=== PATIENT | male | born 1945 | race Caucasian/White ===

== ENCOUNTER 2019-06-07 11:07 | Inpatient (IN) ==
[2019-06-07] MEDS ORDERED: ZOFRAN IV ONE (11:47)
[2019-06-07] MEDS ORDERED: NS 1,000 ML IV ONE (13:16)
[2019-06-07 13:33] LABS: BASO# 0.01 X1000 (0.0-0.2); BASO% 0.2 % (0.0-0.8); EOS# 0.04 X1000 (0.0-0.7); EOS% 0.8 % (0.0-10.0); HEMATOCRIT 46.6 % (42.0-52.0); HEMOGLOBIN 15.1 g/dL (14.0-18.0); LYMPH# 1.27 X1000 (1.2-3.4); MCH 28.8 PG (27-31); MCHC 32.4 g/dL (33-37); MCV 88.9 FL (81-99); MONO# 0.45 X1000 (0.11-0.59); MONO% 9.2 % (1.7-9.3); MPV 12.1 FL (7.4-10.4); NEUT# 3.11 X1000 (1.4-6.5); NEUT% 63.8 % (42.2-75.2); PLT 111 X1000 (130-400); RBC 5.24 XMIL (4.7-6.1); RDW 13.9 % (11.5-14.5); WBC 4.88 X1000 (4.8-10.8)
--- NOTE | 2019-06-07 13:52 | Diag Imaging Result Doc PS360 ---
FLAT/UPRIGHT ABD/1 VIEW CHEST - 06/07/2019 INDICATION: vomiting TECHNIQUE: COMPARISON: Chest x-ray 06/05/2019 FINDINGS: Lung volumes are lower. There is a focal infiltrate at the lateral left lung base. Heart size is borderline enlarged. There is a nonobstructive bowel gas pattern. There is rectal stool impaction with a rectal stool ball measuring 7.5 cm. IMPRESSION: 1. Left lung base infiltrate compatible with pneumonia. 2. Rectal stool impaction. Electronically signed by Sim Garcia 06/07/2019 1:50 PM
[2019-06-07] MEDS ORDERED: DUONEB (A & A) INH ONE (13:54)
[2019-06-07] MEDS ORDERED: PULMICORT INH ONE (13:55)
[2019-06-07] MEDS ORDERED: ROCEPHIN 1 GM in NS 50 ML IV ONE (13:55)
[2019-06-07] MEDS ORDERED: SOLU-MEDROL IV ONE (13:55)
[2019-06-07] MEDS ORDERED: DULCOLAX PR ONE (14:03)
[2019-06-07 14:08] LABS: AGAP 14; ALB/GLOB RATIO 1.4; ALBUMIN 4.3 g/dL (3.5-5.0); ALKALINE PHOSPHATASE 43 U/L (32-122); BUN 16 mg/dL (8-22); CALCIUM 9.2 mg/dL (8.8-10.2); CHLORIDE 102 mmol/L (98-107); COSMO 285; ESTIMATED GFR > 60; GLUCOSE 173 mg/dL (70-104); GOT 128 U/L (10-34); GPT 98 U/L (10-44); POTASSIUM 3.9 mmol/L (3.5-5.1); SODIUM 140 mmol/L (136-145); TCO2 24 mmol/L (25-35); TOTAL BILIRUBIN 0.47 mg/dL (0.20-1.00); TOTAL PROTEIN 7.4 g/dL (6.3-8.3)
[2019-06-07 14:49] LABS: ALLEN TEST YES; BE 0.5 mmoll (-3.0-3.0); BLOOD TYPE ARTERIAL; HCO3-(ACT) 25.2 mmoll (20.0-26.0); METHB 0.6 % (0.0-1.5); O2(CT) 18.8 mL/dL (15.0-23.0); O2HB 91.9 % (95.0-99.0); PCO2(98.6) 47 mmHg (35-45); PO2(98.6) 61 mmHg (60-100); SAMPLE BLOOD; SAO2 94.4 % (95.0-100.0); THB 14.6 g/dL (11.5-17.4); pH(98.6) 7.36 (7.35-7.45)
[2019-06-07 14:50] LABS: MODALITY CANNULA
--- NOTE | 2019-06-07 14:59 | PROVIDER DOCUMENTATION ---
This chart was entered by Char De La Paz Scribe, acting as scribe for Katie Mcguire MD. HPI-Abdominal Pain/GI Problem - General Stated Complaint: n/v and flu + Time Seen by Provider: 06/07/19 11:11 Source: patient, EMS ([facility]) Allergies/Adverse Reactions: Patient Allergies Allergy/AdvReac Type Severity Reaction Status Date / Time morphine AdvReac HIVES Verified 06/05/19 13:46 Home Medications: Home Medication List Medication Instructions Recorded Confirmed Last Taken Type Amlodipine [Norvasc] 1 dose PO DAILY 06/05/19 06/07/19 06/05/19 07:00 History LISINOpril [Prinivil] 1 dose PO DAILY 06/05/19 06/07/19 06/05/19 07:00 History Metformin [Glucophage] 1 dose PO DAILY 06/05/19 06/07/19 06/04/19 22:00 History Oseltamivir [Tamiflu] 75 mg PO BID #9 cap 06/05/19 06/07/19 Unknown Rx Hydrochlorothiazide 12.5 mg PO DAILY 06/07/19 06/07/19 Unknown History - History of Present Illness-ABD Nature of Presenting Problems: 74 yowm presents to the ed via ems ([facility]) with c/o n/v acute onset this morning. pt was dx was flu on 06/05/19 and is on Tamiflu. pt on exam has nausea and is diaphoretic. pt looks to not feel well on exam Abdominal Pain Onset Location: reports: other (denies pain just has nausea) Pain Radiation: reports: no radiation Quality of Pain: reports: none, other (nausea) Severity in ED: reports: moderate Onset/Duration: reports: this morning Timing: reports: still present, getting worse Activities at Onset: reports: light activity Exposure to sick contacts?: No Modifying Factors: improves with: nothing Associated Symptoms: reports: constipation, nausea, vomiting. denies: back/neck pain, chest pain, cough, dizziness, fever/chills, shortness of breath Last BM: last night Dark Stools Present?: reports: none noticed Rectal Bleeding: reports: none # of Diarrhea Episodes: 0 Rectal Pain: reports: none # of Vomiting Episodes: 4 Emesis Description: reports: other (yellow) Bruising or Bleeding Gums?: No Similar Symptoms Previously?: Yes Recently seen or treated by another doctor?: Yes (dx with flu 06/05/19 in ed) Review of Systems - Adult - REVIEW OF SYSTEMS - ADULT Constitutional: denies: chills, fever Eyes: reports: no symptoms reported Ears, Nose, Mouth & Throat: reports: no symptoms reported Cardiovascular: denies: chest pain, palpitations Respiratory: reports: see HPI, wheezing. denies: cough, shortness of breath Gastrointestinal: reports: see HPI, constipation, nausea, vomiting. denies: abdominal pain Genitourinary: reports: no symptoms reported Musculoskeletal: denies: back pain, neck pain Integumentary: reports: no symptoms reported Neurological: denies: dizziness/vertigo, headache/migraines Psychiatric: reports: no symptoms reported Endocrine: reports: no symptoms reported Hematologic/Lymphatic: reports: no symptoms reported Allergic/Immunologic: reports: no symptoms reported All Other Systems: Reviewed and Negative Past History - Adult - PAST MEDICAL HISTORY-ADULT Review of Records: reports: Old Records Reviewed, Nursing Assessment Review, Medications Reviewed, Social history reviewed & non-contributory. Major Childhood Illnesses: reports: denies history Cardiovascular: reports: HTN Respiratory: reports: denies history Gastrointestinal: reports: denies history Genitourinary: reports: denies history Musculoskeletal: reports: denies history Neurological: reports: denies history Psychiatric: reports: denies history Endocrine/Immune: reports: Diabetes Diabetes Type: Type 2 Other Conditions: reports: cataract/glaucoma - PRIOR SURGERIES/PROCEDURES Surgical/Procedure History: reports: reviewed, not pertinent - IMMUNIZATION STATUS Childhood Immunizations: See Nurse Assessment Flu Vaccine: See Nurse Assessment - FAMILY HISTORY Family History: reviewed, not pertinent - SOCIAL HISTORY Smoking: denies Substance Use: denies Living Situation: family Physical Exam-General - PHYSICAL EXAM-ADULT Initial Vital Signs Reviewed: Yes - CONSTITUTIONAL General Appearance: alert, mild distress, obese - EYES Eyes: PERRL/EOMI - HEAD, EARS, NOSE, MOUTH & THROAT HENMT: negative: moist mucous membranes (dry oral) - NECK Neck: non-tender, full range of motion, supple, normal inspection - RESPIRATORY Respiratory: chest non-tender, no pleuratic chest pain, no respiratory distress, no accessory muscle use, wheezing - CARDIOVASCULAR Cardiovascular: normal peripheral pulses, regular rate, rhythm - CHEST (BREASTS) Chest/Breast: deferred - GASTROINTESTINAL (ABDOMEN) Abdominal Exam: soft, other (c/o nausea) - GENITOURINARY Male Genitalia: deferred Rectal Exam: deferred Hemoccult Exam: deferred - LYMPHATIC Lymphatic: no adenopathy - MUSCULOSKELETAL Back Exam: no CVA tenderness, no vertebral tenderness Extremity: normal range of motion, non-tender, normal inspection - SKIN Integumentary: normal color, normal turgor, warm/dry - NEUROLOGIC Neurologic: grossly normal - PSYCHIATRIC Psych/Mental Status: normal mood/affect, normal thought content, normal thought process, oriented x 3 Progress - PLAN OF CARE/RESULTS Result Diagrams: 06/07/19 11:36 06/07/19 11:36 - REASSESSMENT Reassessment #1 Time Reassessed: 13:53 Status: worsening (when pt o2 is taken off O2 sat drops to 88%) - XRAY 1 XRAY: Bilateral XRAY Study: Abdomen Impression: See EMR Report (FLAT/UPRIGHT ABD/1 VIEW CHEST - 06/07/2019 INDICATION: vomiting TECHNIQUE: COMPARISON: Chest x-ray 06/05/2019 FINDINGS: Lung volumes are lower. There is a focal infiltrate at the lateral left lung base. Heart size is borderline enlarged. There is a nonobstructive bowel gas pattern. There is rectal stool impaction with a rectal stool ball measuring 7.5 cm. IMPRESSION: 1. Left lung base infiltrate compatible with pneumonia. 2. Rectal stool impaction. Electronically signed by Sim Garcia 06/07/2019 1:50 PM 06/07/19 1350 Interpreting Physician: Sim Garcia MD Dictated Date/Time: 06/07/19 1349 cc: Katie Mcguire MD; Taras Walls) - CONSULTS/PCP/HOSPITALIST Notification #1 *Consult/PCP/Hospitalist*: hospitalist dr suarez Time Discussed: 14:58 Consult Disposition: Admit Departure - Departure Date of Disposition Decision: 06/07/19 Time of Disposition Decision: 14:58 DIAGNOSIS: Fecal impaction of rectum PNA (pneumonia) Qualifiers: Pneumonia type: due to unspecified organism Laterality: left Lung location: u nspecified part of lung Qualified Code(s): J18.9 - Pneumonia, unspecified o rganism Disposition: ADMITTED INPATIENT 09 Certified Medical Emergency: Emergent Condition: Stable Referrals and Follow-Ups: Taras Walls [Primary Care Provider] - - Critical Care Note This patient required my direct & personal management of CC.: No Attestation - Physician/ RIU Attestation Patient care was provided by Advanced Practice Provider:: No The physician spent face to face time with patient:: Yes Advanced Practice Provider documentation review:: Supervising physician onsite and consulted in the evaluation and care of this patient. The physician did have a face to face encounter with the patient. This chart was documented by the indicated scribe, (Char De La Paz Scribe) and accurately reflects the services I performed and decisions made by me, Katie Mcguire MD, as attested by the provider's signature.
[2019-06-07] MEDS ORDERED: ZOFRAN IV PRN (16:45)
[2019-06-07] MEDS: ROCEPHIN 1 GM in NS 50 ML IV SCH (17:07)
[2019-06-07] MEDS: NS 1,000 ML IV SCH (17:07)
[2019-06-07] MEDS: DUONEB (A & A) INH SCH ×2 (18:03→20:11)
[2019-06-07] MEDS: ZITHROMAX 500 MG/NS 500 MG/250 ML IVPB IV SCH (18:42)
[2019-06-07] MEDS: HUMALOG SUBQ SCH ×2 (18:43→22:52)
--- NOTE | 2019-06-07 21:13 | HISTORY AND PHYSICAL ---
PRIMARY CARE PHYSICIAN: Dr. Taras Walls. CHIEF COMPLAINT: Was diagnosed with the flu on 06/05/2019. Has been taking Tamiflu but has worsening shortness of breath, nausea, vomiting. When he arrived, he had an O2 saturation that dropped down to 81% on room air. HISTORY OF PRESENTING ILLNESS: This is a 74-year-old male who presents to [facility] after he states 2 days ago on 06/05/2019 he was diagnosed with flu B, placed on Tamiflu and has taken 2 doses of that, but has had worsening shortness of breath, some nausea, vomiting, fatigue despite taking his Tamiflu. He had an O2 saturation on room air in the emergency room of 81%. His workup showed an abdominal x-ray with a left lung base infiltrate compatible with pneumonia and a rectal stool impaction. He was placed on O2 via nasal cannula and his saturation has come up to 96%. His white blood cell count is normal at 4.88. He will be admitted for further evaluation and treatment. PAST MEDICAL HISTORY: Diabetes type 2 and hypertension. PAST SURGICAL HISTORY: Of cataract surgery. FAMILY HISTORY: Reviewed and noncontributory. SOCIAL HISTORY: Currently lives with family. Denies any tobacco, alcohol or illicit drug use. ALLERGIES: Morphine. HOME MEDICATIONS: He takes Norvasc 10 mg p.o. daily, hydrochlorothiazide 12.5 mg p.o. daily, lisinopril 20 mg p.o. daily, metformin 500 mg p.o. daily will be held and we will continue his Tamiflu 75 mg p.o. b.i.d. and he will need 4 more days of that medication as he has only taken 2 doses at this point. LABORATORY DATA: Showed a white blood cell count of 4.88, hemoglobin 15.1, hematocrit 46.6, platelets 111,000. ABG with a pH of 7.36, pCO2 of 47, PO2 of 61, bicarbonate 25.2. This was on 3 L via nasal cannula. Sodium of 140, potassium 3.9, chloride 102, CO2 of 24, BUN of 16, creatinine 1, glucose 173, AST of 128, ALT 98 but that is an improvement from when he was here on the with an AST of 142 and ALT was 94 on 06/05/2019. Abdomen x-ray showed a left lung base infiltrate compatible with pneumonia and a rectal stool impaction. REVIEW OF SYSTEMS: He denied any recent fever in the last day. Prior to that he had a fever with the flu 2 days ago but that has resolved. Chills. No blurred vision, dizziness, chest pain. He has had a nonproductive cough, shortness of breath worse with exertion, nausea, vomiting, constipation. Has had some loose stool in the last couple of days also and no burning or hurting with urination. PHYSICAL EXAMINATION: On arrival, he had a temperature of 97.6 degrees, pulse 89, respirations 17, blood pressure 165/85. He was saturating 94% on room air on arrival and then dropped to 81% on room air, placed on O2 via nasal cannula currently saturating 96 to 98 percent. GENERAL: This is a 74-year-old male who is lying in the bed and answers questions appropriately. HEENT: Normocephalic, atraumatic. Normal ENT inspection. Oropharynx and nares are clear. EYES: Pupils are equal, round, reactive to light and accommodation. Extraocular movements are intact. NECK: Normal inspection. Normal range of motion. LUNGS: With some wheezing to his upper lobes, decreased to bilateral lower lobes. Equal lung expansion, chest wall movement noted. O2 via nasal cannula currently in use. HEART: Regular rate and rhythm. No murmurs, rubs, or gallops. ABDOMEN: Soft, nontender. Bowel sounds are present x4 quadrants. MUSCULOSKELETAL: He had 5/5 strength x4 extremities. NEUROLOGICAL: The cranial nerves 2-12 appear grossly intact. ASSESSMENT: 1. Left lower lobe pneumonia. 2. Flu B positive on 06/05/2019. Repeat today was negative. 3. Fecal impaction. 4. Diabetes type 2. 5. Hypertension, history of. PLAN: He will be admitted to the medical unit. Placed on telemetry, O2 per protocol, incentive spirometry, diabetic diet. We will do pattern blood sugars with sliding scale insulin. Apply SCDs for DVT prophylaxis. Continue his home medications that will include his Tamiflu 75 mg p.o. b.i.d. and he needs 4 more days to complete his 5 day therapy, Rocephin 1 gram IV q.24 and azithromycin 500 IV q.24, DuoNebs q.4 hours. We will continue all his home medications. He received a Dulcolax 10 mg per rectum x1 in the emergency room. We will evaluate his stool output from that and may need further intervention. We will also start him on MiraLAX 17 g p.o. daily as he said he has had a problem with constipation recently. Further orders after seen by attending. Dictated by LAMONT Eaton for Collin Damian MD cc: LAMONT Eaton MD Neil Yeager, MD
--- NOTE | 2019-06-07 22:14 | HISTORY AND PHYSICAL ---
ADDENDUM: Mr. Rodríguez is a 74-year-old male who was seen here in the ER 2 days ago, was diagnosed with the flu, sent home on Tamiflu. He said he took about 2 pills, started to feel a whole lot better. However, he woke up this morning and he feels kind of dizzy, no energy. He has been coughing and came back to the emergency room. His flu is negative. However, chest x-ray suggests that he has a left lower lobe pneumonia and he is also remarkably constipated with fecal impaction. He has been admitted for further medical care. PHYSICAL EXAMINATION: VITAL SIGNS: The patient vitals blood pressure is 161/75, pulse of 80, respirations 18, temperature is 97.6 degrees, the patient is saturating 92% on 3 L. GENERAL: Mr. Rodríguez is a 74-year-old male. He is in bed. He seems to be in mild respiratory distress. HEENT: Mucosa is pink and moist. CHEST EXAM: Which is most positive. He has bilateral diffuse end expiratory wheezing and some crackles in the posterior lung menard. IMAGING: A chest x-ray shows left lower lobe infiltrate compatible with pneumonia. KUB also shows rectal stool impaction. LABORATORY DATA: Has all been reviewed. ASSESSMENT: 1. Acute hypoxemic respiratory failure. We will continue with supplemental oxygen. 2. Left lower lobe pneumonia. The patient has been started on antimicrobial coverage. We will also get blood cultures and sputum cultures to guide therapy. 3. Fecal impaction. We will start the patient on bowel regimen. 4. Dizziness, concerning for possible orthostatic hypotension. We will get orthostatic vitals. The patient looks somehow dry, so we are going to continue with IV fluids. Please refer to the details of the history and physical that has been dictated by the CLIENT SUPPORT ADMINISTRATOR in the chart. I have discussed my findings and the plan with Ms. Rodríguez. The was at the bedside at the time of this encounter. cc: Collin Damian MD
[2019-06-07] MEDS: TAMIFLU PO SCH (22:52)
[2019-06-07] MEDS: TYLENOL PO PRN (23:25)
[2019-06-08] MEDS: DUONEB (A & A) INH SCH ×5 (00:11→16:20)
[2019-06-08] MEDS: HUMALOG SUBQ SCH ×4 (06:55→21:10)
--- NOTE | 2019-06-08 07:45 | Diag Imaging Result Doc PS360 ---
EXAM: CHEST-PORTABLE INDICATION: dyspnea TECHNIQUE: One view COMPARISON: 06/07/2019 FINDINGS: The focal infiltrate at the left lung base has improved. No new consolidation is identified. Cardiac silhouette is stable. IMPRESSION: Interval improvement of infiltrate at the left lung base. Electronically signed by Claudio Jensen 06/08/2019 7:43 AM
[2019-06-08 08:05] LABS: HEMATOCRIT 43.1 % (42.0-52.0); HEMOGLOBIN 13.9 g/dL (14.0-18.0); LYMPH% 9.8 % (20.5-51.1); MCHC 32.3 g/dL (33-37); MCV 89.8 FL (81-99); MONO# 0.58 X1000 (0.11-0.59); MONO% 9.4 % (1.7-9.3); MPV 11.8 FL (7.4-10.4); NEUT# 4.96 X1000 (1.4-6.5); NEUT% 80.8 % (42.2-75.2); PLT 148 X1000 (130-400); RDW 14.1 % (11.5-14.5); WBC 6.14 X1000 (4.8-10.8)
[2019-06-08 08:41] LABS: AGAP 13; BUN 13 mg/dL (8-22); CALCIUM 9.1 mg/dL (8.8-10.2); CHLORIDE 104 mmol/L (98-107); COSMO 288; ESTIMATED GFR > 60; GLUCOSE 159 mg/dL (70-104); POTASSIUM 4.4 mmol/L (3.5-5.1); SODIUM 143 mmol/L (136-145); TCO2 26 mmol/L (25-35)
[2019-06-08] MEDS: PRINIVIL PO SCH (09:45)
[2019-06-08] MEDS: MIRALAX PO SCH (09:45)
[2019-06-08] MEDS: NORVASC PO SCH (09:45)
[2019-06-08] MEDS: TAMIFLU PO SCH ×2 (09:45→21:10)
[2019-06-08] MEDS ORDERED: DUONEB (A & A) INH PRN (13:29)
[2019-06-08] MEDS: NS 1,000 ML IV SCH (13:55)
[2019-06-08] MEDS: TYLENOL PO PRN (14:06)
--- NOTE | 2019-06-08 16:29 | PROGRESS NOTE ---
DATE: 06/08/2019 SUBJECTIVE: The patient seems to be a little bit better compared with admission, but he is still complaining of cough and generalized weakness. He has a diagnosis of flu on 06/05/2019. The repeated exam is negative, but he has been going to be treated for 5 days continuously, it looks like he did not take the pill, or take the treatment like he should. Now, he has left lower lobe pneumonia. We will continue with antibiotics. He still seems to be a little bit dehydrated and I will continue with continuous IV fluid. For his generalized weakness I will go ahead and ask Physical Therapy to see him. OBJECTIVE: Vital Signs: Temperature 97.6 degrees, pulse 97, respiratory rate 19, blood pressure 138/54, oxygen saturation 91 on 2 L of nasal cannula. HEENT: Head normocephalic, no trauma. PERRLA. Neck: Supple. No JVD. No masses. Central trachea. Chest: Clear to auscultation, some rhonchi at the level of the left base, and probably a little bit decreased breath sounds on the right side base as well. Abdomen: Soft, nontender, nondistended. No hepatosplenomegaly. Extremities: No edema, no clubbing, no cyanosis. Neurological Examination: The patient is awake alert. He is oriented x3. No focal deficit but generalized weakness. LABORATORY: WBC 6.1, hemoglobin 13.9, hematocrit 43.1, platelets 148,000. Sodium 143, potassium 4.4, chloride 104, bicarbonate 26, BUN 13, creatinine 1, glucose 159, calcium 9.1. ASSESSMENT AND PLAN: 1. Left lower lobe pneumonia. Continue with antibiotics. We will continue to monitor this patient closely. 2. Flu B positive on 06/05/2019. Repeat study yesterday was negative, but we will treat this patient for 5 days. I do not think he has been taking his medications at home as prescribed because he had the prescription filled I think late. We will treat for 5 days. 3. Fecal impaction, resolved. 4. Type 2 diabetes. It looks like his diabetes is well controlled at home, as per the patient. It has been a bit elevated here during this hospitalization. We will monitor this closely. I will ask for a hemoglobin A1c. 5. Elevated liver function tests, especially AST and ALT. Actually, on 06/05/2019 the AST was higher and the [*] was a little bit lower than the new one. I will recheck these, probably is due to dehydration. As per the patient he has not been eating or drinking too much for the past 2 weeks. 6. Generalized weakness. I have requested Physical Therapy to evaluate this patient. 7. Dizziness. He is not complaining of dizziness at this moment, probably he was dehydrated due to his multiple issues with pneumonia and influenza. cc: Faustino Hinojosa MD
[2019-06-08] MEDS: ROCEPHIN 1 GM in NS 50 ML IV SCH (16:36)
[2019-06-08] MEDS: ZITHROMAX 500 MG/NS 500 MG/250 ML IVPB IV SCH (17:35)
[2019-06-09] MEDS: DUONEB (A & A) INH SCH ×4 (00:09→08:18)
[2019-06-09] MEDS: NS 1,000 ML IV SCH ×3 (01:16→15:10)
[2019-06-09 06:52] LABS: HEMOGLOBIN A1C 6.5 % (4.8-6.0)
[2019-06-09 06:57] LABS: AGAP 11; ALB/GLOB RATIO 1.3; ALBUMIN 3.4 g/dL (3.5-5.0); ALKALINE PHOSPHATASE 33 U/L (32-122); BUN 14 mg/dL (8-22); CALCIUM 8.2 mg/dL (8.8-10.2); CHLORIDE 108 mmol/L (98-107); COSMO 290; CREATININE 0.8 mg/dL (0.7-1.2); ESTIMATED GFR > 60; GLUCOSE 108 mg/dL (70-104); GOT 78 U/L (10-34); GPT 59 U/L (10-44); POTASSIUM 3.7 mmol/L (3.5-5.1); SODIUM 145 mmol/L (136-145); TCO2 26 mmol/L (25-35); TOTAL BILIRUBIN 0.26 mg/dL (0.20-1.00)
[2019-06-09] MEDS: HUMALOG SUBQ SCH ×5 (06:57→21:25)
[2019-06-09] MEDS: PRINIVIL PO SCH (10:21)
[2019-06-09] MEDS: NORVASC PO SCH (10:21)
[2019-06-09] MEDS: MIRALAX PO SCH (10:22)
[2019-06-09] MEDS: GLUCOPHAGE PO SCH (10:22)
[2019-06-09] MEDS: TAMIFLU PO SCH ×2 (10:22→21:22)
--- NOTE | 2019-06-09 11:13 | PROGRESS NOTE ---
DATE: 06/09/2019 SUBJECTIVE: The patient seems to be feeling a little bit better today. He is still complaining of shortness of breath and cough, he feels stronger as well. He had an episode of a nausea today and shakiness after getting DuoNeb treatment. I will stop it and I will put this patient on Xopenex to see how he does. OBJECTIVE: Vital Signs: Temperature 97.7 degrees, pulse 78, respiratory rate 17, blood pressure 159/71, oxygen saturation 91% on 3 L of nasal cannula. HEENT: Head normocephalic, no trauma, PERRLA. Neck: Supple. No JVD. No masses. Central trachea. Chest: Rhonchi at the level of the left base. Decreased breath sounds on the right side base as well. Abdomen: Soft, nontender, nondistended. No hepatosplenomegaly. Extremities: No edema, no clubbing, no cyanosis. Neurological: The patient is awake and alert, he is oriented x3. No focal deficits. LABORATORY: Sodium 145, potassium 3.7, chloride 108, bicarbonate 26, BUN 14, creatinine 0.8, glucose 108, calcium 8.2, hemoglobin A1c 6.5. AST 78, ALT 59, alkaline phosphatase 33, albumin 3.4. ASSESSMENT AND PLAN: 1. Left lower lobe pneumonia, continue with antibiotics. Continue with breathing treatment, which apparently caused some nausea and shakiness this morning, so I will stop the DuoNeb and put him on Xopenex, continue with oxygen supplementation. 2. Hypoxemic respiratory failure due to pneumonia and influenza B positive. Continue with oxygen supplementation. 3. Influenza B positive on 06/05/2019. Continue with treatment with Tamiflu to complete 5 days. 4. Fecal impaction, resolved. He had a small bowel movement yesterday but today in the morning he had a good bowel movement. 5. Type 2 diabetes. Hemoglobin A1c 6.5. Continue with the same management. 6. Elevated LFTs, especially AST and ALT. I do believe this is probably due to dehydration and/or fatty liver, is getting better though. 7. Generalized weakness. Physical Therapy already evaluated this patient. He is getting better. 8. Dizziness. He has not been complaining of dizziness recently, probably was due to dehydration and the infectious process. We will keep an eye on this. cc: Faustino Hinojosa MD
[2019-06-09] MEDS: TYLENOL PO PRN (12:25)
[2019-06-09] MEDS: ROCEPHIN 1 GM in NS 50 ML IV SCH (15:59)
[2019-06-09] MEDS: NS NEB INH SCH ×2 (16:25→21:56)
[2019-06-09] MEDS: XOPENEX NEB INH SCH ×2 (16:25→21:54)
[2019-06-09] MEDS: ZITHROMAX 500 MG/NS 500 MG/250 ML IVPB IV SCH (16:59)
[2019-06-09] MEDS ORDERED: ANTIVERT PO PRN (23:36)
[2019-06-10] MEDS: SOLU-MEDROL IV SCH ×4 (00:08→22:48)
[2019-06-10] MEDS: NS 1,000 ML IV SCH ×2 (06:54→18:02)
[2019-06-10] MEDS: HUMALOG SUBQ SCH ×4 (07:36→22:47)
[2019-06-10] MEDS: GLUCOPHAGE PO SCH (08:37)
[2019-06-10] MEDS: NORVASC PO SCH (08:37)
[2019-06-10] MEDS: TAMIFLU PO SCH ×2 (08:37→22:48)
[2019-06-10] MEDS: PRINIVIL PO SCH (08:37)
[2019-06-10] MEDS: MIRALAX PO SCH (08:37)
[2019-06-10 08:52] LABS: AGAP 12; ALB/GLOB RATIO 1.2; ALKALINE PHOSPHATASE 44 U/L (32-122); BUN 13 mg/dL (8-22); CALCIUM 9.3 mg/dL (8.8-10.2); CHLORIDE 102 mmol/L (98-107); COSMO 283; CREATININE 0.8 mg/dL (0.7-1.2); ESTIMATED GFR > 60; GLUCOSE 165 mg/dL (70-104); GOT 104 U/L (10-34); GPT 77 U/L (10-44); POTASSIUM 4.5 mmol/L (3.5-5.1); SODIUM 140 mmol/L (136-145); TCO2 26 mmol/L (25-35); TOTAL BILIRUBIN 0.43 mg/dL (0.20-1.00); TOTAL PROTEIN 7.4 g/dL (6.3-8.3)
[2019-06-10] MEDS: XOPENEX NEB INH SCH (09:00)
--- NOTE | 2019-06-10 09:26 | Diag Imaging Result Doc PS360 ---
EXAM: CHEST-PORTABLE 06/10/2019 HISTORY: SOB TECHNIQUE: AP portable upright at 0916 COMMENT: There are platelike opacities in both lung bases. This was also the case on 06/08/2019 but is improved with regard to the left lower lobe since 06/07/2019. IMPRESSION: Bibasilar atelectasis. Electronically signed by Lino Mcconnell 06/10/2019 9:24 AM
[2019-06-10 09:50] LABS: ALLEN TEST YES; BE 2.8 mmoll (-3.0-3.0); BLOOD TYPE ARTERIAL; HCO3-(ACT) 26.9 mmoll (20.0-26.0); O2(CT) 19.8 mL/dL (15.0-23.0); O2HB 91.5 % (95.0-99.0); PCO2(98.6) 40 mmHg (35-45); PO2(98.6) 58 mmHg (60-100); SAMPLE BLOOD; SAO2 94.3 % (95.0-100.0); THB 15.4 g/dL (11.5-17.4); pH(98.6) 7.44 (7.35-7.45)
[2019-06-10 09:53] LABS: MODALITY CANNULA
[2019-06-10] MEDS: LOVENOX SUBQ SCH (11:59)
--- NOTE | 2019-06-10 14:48 | PROGRESS NOTE ---
DATE: 06/10/2019 SUBJECTIVE: This patient today is complaining of some nausea and he is not feeling well, more shortness of breath, apparently he is not tolerating really good the breathing treatment so I will stop it. Yesterday I stopped the DuoNeb and put him on Xopenex but he is not tolerating this one either. I will continue with the rest of the treatment. He has no wheezing today so I will decrease the dose of the steroids, continue the oxygen supplementation, continue with antibiotics, continue with Tamiflu as well. OBJECTIVE: Vital Signs: Temperature 98 degrees, pulse 98, respiratory rate 21, blood pressure 131/59, oxygen saturation 93 on 3 L of nasal cannula. HEENT: Head normocephalic, no trauma. PERRLA. Neck: Supple. No JVD, no masses. Central trachea. Chest: He has some rhonchi at the bases mostly at the left base. Decreased breath sounds on the right side as well a little bit. Abdomen: Soft, nontender, nondistended. No hepatosplenomegaly. Extremities: No edema, no clubbing, no cyanosis. Neurological: The patient is awake, alert, he is oriented x3. No focal deficits. LABORATORY: Sodium 140, potassium 4.5, chloride 102, bicarbonate 26, BUN 13, creatinine 0.8, glucose 165, calcium 9.3, AST 104, ALT 77, alkaline phosphatase 44, albumin 4. ASSESSMENT AND PLAN: 1. Left lower lobe pneumonia. Continue with antibiotic. Continue with oxygen supplementation. I will stop the breathing treatment because he is not tolerating this, continue with incentive spirometer. 2. Hypoxemic respiratory failure due to pneumonia and influenza B positive, continue oxygen supplementation. 3. Influenza B positive on 06/05/2019, he really started taking the Tamiflu a few days ago twice a day. I will try to complete 5 days of treatment. 4. Fecal impaction, resolved. 5. Type 2 diabetes. Hemoglobin A1c 6.5. His blood sugar slightly elevated compared to home because of the steroids. 6. Elevated liver function tests, especially AST and ALT, seems to be stable. Probably this is chronic. 7. Generalized weakness. Physical therapy already evaluated this patient. 8. Dizziness. He has not been complaining of dizziness recently but he started having some nausea and dizziness after getting breathing treatment, which I already stopped. 9. X-ray showed bibasilar atelectasis. ABGs showed hypoxemia, will continue with same management for now. cc: Faustino Hinojosa MD
[2019-06-10] MEDS: ROCEPHIN 1 GM in NS 50 ML IV SCH (17:20)
[2019-06-10] MEDS: TYLENOL PO PRN (17:30)
[2019-06-10] MEDS: ZITHROMAX 500 MG/NS 500 MG/250 ML IVPB IV SCH (17:53)
[2019-06-11] MEDS: SOLU-MEDROL IV SCH ×3 (05:45→21:30)
[2019-06-11] MEDS: HUMALOG SUBQ SCH ×4 (06:24→21:31)
[2019-06-11 08:25] LABS: EOS# 0.02 X1000 (0.0-0.7); EOS% 0.2 % (0.0-10.0); HEMATOCRIT 42.5 % (42.0-52.0); HEMOGLOBIN 13.6 g/dL (14.0-18.0); IMM GRAN# 0.02 X1000 (0.0-0.04); IMM GRAN% 0.2 % (0.0-0.5); LYMPH# 0.83 X1000 (1.2-3.4); LYMPH% 9.6 % (20.5-51.1); MCH 28.5 PG (27-31); MCV 89.1 FL (81-99); MONO# 0.39 X1000 (0.11-0.59); MONO% 4.5 % (1.7-9.3); MPV 11.2 FL (7.4-10.4); NEUT% 85.5 % (42.2-75.2); PLT 178 X1000 (130-400); RBC 4.77 XMIL (4.7-6.1); RDW 13.8 % (11.5-14.5); WBC 8.66 X1000 (4.8-10.8)
[2019-06-11 08:43] LABS: AGAP 12; ALB/GLOB RATIO 1.5; ALBUMIN 3.8 g/dL (3.5-5.0); ALKALINE PHOSPHATASE 39 U/L (32-122); BUN 16 mg/dL (8-22); CALCIUM 8.7 mg/dL (8.8-10.2); CHLORIDE 107 mmol/L (98-107); COSMO 289; CREATININE 0.9 mg/dL (0.7-1.2); ESTIMATED GFR > 60; GLUCOSE 146 mg/dL (70-104); GOT 62 U/L (10-34); GPT 58 U/L (10-44); POTASSIUM 4.4 mmol/L (3.5-5.1); SODIUM 143 mmol/L (136-145); TCO2 24 mmol/L (25-35); TOTAL BILIRUBIN 0.45 mg/dL (0.20-1.00); TOTAL PROTEIN 6.3 g/dL (6.3-8.3)
[2019-06-11] MEDS: GLUCOPHAGE PO SCH (08:49)
[2019-06-11] MEDS: MIRALAX PO SCH (08:49)
[2019-06-11] MEDS: PRINIVIL PO SCH (08:49)
[2019-06-11] MEDS: NORVASC PO SCH (08:49)
[2019-06-11] MEDS: TAMIFLU PO SCH (08:49)
[2019-06-11] MEDS: NS 1,000 ML IV SCH ×2 (08:51→21:31)
[2019-06-11 08:53] LABS: LYMPHS 12 % (21-51); MONO 2 % (1-9); SEGS 86 % (42-75)
[2019-06-11] MEDS: LOVENOX SUBQ SCH (11:01)
[2019-06-11] MEDS ORDERED: ZITHROMAX PO SCH (16:00)
[2019-06-11] MEDS: ROCEPHIN 1 GM in NS 50 ML IV SCH (16:50)
[2019-06-11] MEDS ORDERED: FLONASE NAS SCH (17:30)
--- NOTE | 2019-06-11 18:49 | PROGRESS NOTE ---
DATE: 06/11/2019 SUBJECTIVE: Patient seems to be feeling a little bit better today. Have not been able to use breathing treatment because he experienced nausea and shakiness, dizziness, as per the patient he is feeling better. He is still having some dizziness. We will continue with the same management for now. I will add Nasonex on a daily basis to see that helps with his nasal congestion today, I will continue with antibiotics. OBJECTIVE: Vital signs: Temperature 98.1 degrees, pulse 84, respiratory rate 16, blood pressure 132/76, oxygen saturation 98 on 3 L of nasal cannula. HEENT: Head normocephalic. No trauma. PERRLA. Neck: Supple. No JVD, no masses. Central trachea. Chest: He has mild rhonchi at the bases mostly at the left base. Decreased breath sounds on the right side as well a little bit. Abdomen: Soft, nontender, nondistended. No hepatosplenomegaly. Extremities: No edema, no clubbing, no cyanosis. Neurological: The patient is awake, alert, he is oriented x3. No focal deficits. LABORATORY: WBC 8.6, hemoglobin 13.6, hematocrit 42.5, platelet 178,000. Sodium 143, potassium 4.4, chloride 107, bicarbonate 24, BUN 16, creatinine 0.9, glucose 146, calcium 8.7, AST 62, ALT 58, alkaline phosphatase 39, albumin 3.8. ASSESSMENT AND PLAN: 1. Left lower lobe pneumonia. Continue with antibiotics. Continue with oxygen supplementation, I have stopped the breathing treatment because he is not tolerating this, continue with incentive spirometer. 2. Hypoxemic respiratory failure due to pneumonia and influenza B positive. Continue with oxygen supplementation. 3. Influenza B positive on 06/05/2019, we will continue Tamiflu. 4. Fecal impaction, resolved. 5. Type 2 diabetes, hemoglobin A1c 6.5. Blood sugar under control. 6. Elevated liver function tests especially AST, ALT, probably this is chronic and probably is because of fatty liver. 7. Generalized weakness. Physical therapy already evaluated this patient. 8. Dizziness. He has been complaining of mild dizziness today but much better compared with yesterday. 9. X-ray showed bibasilar atelectasis yesterday. Continue with same management for now. Incentive spirometer. cc: Faustino Hinojosa MD
[2019-06-12] MEDS: SOLU-MEDROL IV SCH (05:15)
[2019-06-12] MEDS: TYLENOL PO PRN ×2 (06:02→10:36)
[2019-06-12] MEDS: HUMALOG SUBQ SCH (06:44)
[2019-06-12 07:56] VITALS: BP 156/69
[2019-06-12] MEDS: PRINIVIL PO SCH (08:46)
[2019-06-12] MEDS: NORVASC PO SCH (08:46)
[2019-06-12] MEDS: MIRALAX PO SCH (08:46)
[2019-06-12] MEDS: GLUCOPHAGE PO SCH (08:46)
[2019-06-12 08:57] LABS: AGAP 12; BUN 20 mg/dL (8-22); CHLORIDE 104 mmol/L (98-107); COSMO 289; CREATININE 0.9 mg/dL (0.7-1.2); ESTIMATED GFR > 60; GLUCOSE 131 mg/dL (70-104); POTASSIUM 4.4 mmol/L (3.5-5.1); SODIUM 143 mmol/L (136-145); TCO2 27 mmol/L (25-35)
[2019-06-12 12:33] LABS: HEPATITIS PROFILE ACUTE SEE COMMENTS
--- NOTE | 2019-06-12 15:59 | DISCHARGE SUMMARY ---
ADMISSION DATE: 06/07/2019 DISCHARGE DATE: 06/12/2019 DISCHARGE DIAGNOSES: 1. Left lower lobe pneumonia. 2. Hypoxemic respiratory failure due to pneumonia and influenza B positive. 3. Influenza B positive on 06/05/2019 status post Tamiflu treatment. 4. Fecal impaction, resolved. 5. Type 2 diabetes, controlled. Hemoglobin A1c 6.5. 6. Elevated liver function tests, likely chronic. 7. Generalized weakness. 8. Episode of dizziness, resolved. PROCEDURES PERFORMED: 1. Abdomen x-ray dated 06/07/2019. Left lung base infiltrate compatible with pneumonia, rectal stool impaction. 2. Chest x-ray dated 06/08/2019: Interval improvement of infiltrate at the left lung base. 3. Chest x-ray dated 206:0 06/10/2019: Bibasilar atelectasis, some plaquelike opacities of both lung bases. HOSPITAL COURSE: A 74-year-old, male admitted on 06/07/2019. Two days before admission on 06/05/2019 he was diagnosed with influenza B and he was placed on Tamiflu, but took only 2 doses, but he started having worsening shortness of breath, nausea, vomiting, fatigue despite taking his Tamiflu. Oxygen saturation also was in the low 80s, around 81%. His workup showed left lower lobe pneumonia. Constipation and rectal stool impaction. He was placed on oxygen. We started giving him antibiotics and also some fluids since he was clinically dehydrated, and we started giving Tamiflu twice a day. He did not tolerate the breathing treatment. He has been wheezing and he was placed on steroids and after that he started to improve. He was complaining of some dizziness on and off and generalized weakness. Physical therapy evaluated this patient and it looks like he has been doing better. Today he is feeling much better. He will he already completed treatment with Tamiflu. He already completed treatment with azithromycin and he will be discharged home only with Omnicef to complete the treatment for pneumonia. His blood sugar increased a little bit during this hospitalization due to the steroids, but he actually is taking care of his diabetes at home and his hemoglobin A1c 6.5. The patient will be discharged home today. He will need to follow up with his primary care provider. He needs to call the office for that. He seems to be doing good. He is tolerating p.o. ambulating as well. PHYSICAL EXAMINATION: Temperature 98.2 degrees, pulse 68, respiratory rate 18, blood pressure 156/69 oxygen saturation 95% on room air. HEENT: Head normocephalic, no trauma, PERRLA. Neck: Supple no JVD. No masses. Central trachea. Chest mild rhonchi at the bases, mostly at the left base. Decreased breath sounds on the right base as well a little bit but much better compared with admission. Abdomen: Soft, nontender, nondistended. No hepatosplenomegaly. Extremities clubbing, no cyanosis. Neurological: The patient is awake alert he is oriented x3. No focal deficits. LABORATORY DATA: Sodium 143, potassium 4.4, chloride 104, bicarbonate 27, BUN 20, creatinine 0.9, glucose 131, calcium 9. DISCHARGE MEDICATIONS: 1. Acetaminophen 650 mg p.o. q.4 hours as needed for pain. 2. Amlodipine 10 mg p.o. daily. 3. Cefdinir 300 mg p.o. b.i.d.. 4. Hydrochlorothiazide 12.5 mg p.o. daily. 5. Lisinopril 20 mg p.o. daily. 6. Metformin 500 mg p.o. daily. 7. Medrol Dosepak as directed. 8. MiraLAX 17 g p.o. daily. . cc: Faustino Hinojosa MD
== END 2019-06-12 14:57 | disposition home or self-care (01) | DRG 193 ==
LOC: SUPCPDRO → ED 11:07 → 4N 16:17 → SUATTDRO 16:17 → 4N 06-09 17:14
PROVIDERS: ATTEND Internal Medicine